=== PATIENT | male | born 1995 | race Caucasian/White ===

== ENCOUNTER 2019-05-26 11:21 | Emergency (ER) | payer BC ==
[2019-05-26 12:10] VITALS: BP 126/68
--- NOTE | 2019-05-26 12:21 | UC ---
Shoulder Pain HPI - HPI Summary HPI Summary: Right shoulder/ clavicle pain onset 3 eves ago s/p fall off snow board; swelling at mid clavicle - History of Current Complaint Chief Complaint: UCUpperExtremity Stated Complaint: RIGHT SHOULDER INJURY Time Seen by Provider: 05/26/19 12:15 Hx Obtained From: Patient Onset/Duration: Lasting Days - 3 Timing: Constant Severity Initially: Moderate Severity Currently: Moderate Pain Intensity: 3 - Allergies/Home Medications Allergies/Adverse Reactions: Allergies Allergy/AdvReac Type Severity Reaction Status Date / Time No Known Allergies Allergy Verified 05/26/19 12:11 Home Medications: Home Medications Borrowed Pain Med 1 dose PO ONCE PRN 05/26/19 [History Confirmed 05/26/19] PMH/Surg Hx/FS Hx/Imm Hx - Surgical History Surgical History: None - Social History Alcohol Use: Rare Substance Use Type: None Smoking Status (MU): Never Smoked Tobacco Review of Systems All Other Systems Reviewed And Are Negative: Yes Musculoskeletal: Positive: Arthralgia, Decreased ROM, Edema, Myalgia Is Patient Immunocompromised?: No Physical Exam Triage Information Reviewed: Yes Appearance: Well-Appearing, Well-Nourished, Pain Distress Vital Signs: Initial Vital Signs Temp 99.9 F 05/26/19 12:04 Pulse 82 05/26/19 12:04 Resp 16 05/26/19 12:04 BP 126/68 05/26/19 12:04 Pulse Ox 100 05/26/19 12:04 Vital Signs Reviewed: Yes ENT Exam: Normal Dental Exam: Normal Neck exam: Normal Respiratory Exam: Normal Cardiovascular Exam: Normal Abdominal Exam: Normal Musculoskeletal: Positive: Strength Limited @ - in right arm, ROM Limited @ - right shoulder, Edema @ - over the acromial end of clavical Neurological Exam: Normal Psychological Exam: Normal Skin Exam: Normal Shoulder Course/Dx - Course Course Of Treatment: hx obtained, exam performed ,meds reviewed, xray obtained no fractures, sling applied - Differential Dx/Diagnosis Differential Diagnosis/HQI/PQRI: Fracture (Closed), Sprain, Strain Provider Diagnosis: Contusion of right clavicle Discharge ED - Sign-Out/Discharge Documenting (check all that apply): Patient Departure All imaging exams completed and their final reports reviewed: No Studies - Discharge Plan Condition: Stable Disposition: HOME Patient Education Materials: Contusion in Adults (ED) Referrals: Miguel Angel Ray MD [Primary Care Provider] - Additional Instructions: 1. warm compresses to the shoulder 2. Ibuprofen and rest 3. Use the sling for support for next 2 days and then as needed. - Billing Disposition and Condition Condition: STABLE Disposition: Home
== END 2019-05-26 12:47 | disposition home or self-care (01) ==
LOC: UCCORT 11:21
DX: S40.011A Contusion of right shoulder, initial encounter (principal); W00.0XXA Fall on same level due to ice and snow, initial encounter; Y93.29 Activity, other involving ice and snow; Y92.9 Unspecified place or not applicable
CPT/HCPCS: 99212; G0463